=== PATIENT | male | born 1995 | race Caucasian/White ===

== ENCOUNTER 2021-01-02 18:57 | Emergency (ER) | payer SELFPAY ==
[2021-01-02] MEDS ORDERED: Tetracaine HCl/PF 0.5% 4 ML Bottle EYERT ONE (19:51)
[2021-01-02] MEDS ORDERED: Fluorescein 1 MG Ophth Strip EYERT ONE (19:52)
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
== END 2021-01-02 20:36 | disposition home or self-care (01) ==
LOC: MW.ED 18:57
DX: T15.91XA Foreign body on external eye, part unspecified, right eye, initial encounter (principal); W22.8XXA Striking against or struck by other objects, initial encounter
CPT/HCPCS: 99283